=== PATIENT | female | born 1935 | race Caucasian/White ===

== ENCOUNTER 2019-02-12 20:36 | Inpatient (IN) ==
[2019-02-12] MEDS ORDERED: NS 1,000 ML IV ONE (21:43)
[2019-02-12] MEDS ORDERED: MERREM 1 GM in NS 50 ML IV ONE (21:44)
[2019-02-12 23:04] LABS: BASO# 0.04 X1000 (0.0-0.2); BASO% 0.2 % (0.0-0.8); HEMATOCRIT 40.7 % (37.0-47.0); HEMOGLOBIN 13.8 g/dL (12.0-16.0); IMM GRAN# 0.06 X1000 (0.0-0.04); IMM GRAN% 0.3 % (0.0-0.5); LYMPH# 0.63 X1000 (1.2-3.4); LYMPH% 3.6 % (20.5-51.1); MCH 30.1 PG (27-31); MCHC 33.9 g/dL (33-37); MCV 88.7 FL (81-99); MONO# 1.17 X1000 (0.11-0.59); MONO% 6.8 % (1.7-9.3); MPV 10.5 FL (7.4-10.4); NEUT# 15.39 X1000 (1.4-6.5); NEUT% 89.1 % (42.2-75.2); PLT 346 X1000 (130-400); RBC 4.59 XMIL (4.2-5.4); RDW 12.3 % (11.5-14.5); WBC 17.29 X1000 (4.8-10.8)
[2019-02-12 23:20] LABS: ALB/GLOB RATIO 1.1; ALBUMIN 3.9 g/dL (3.5-5.0); CALCIUM 10.5 mg/dL (8.8-10.2); POTASSIUM 3.5 mmol/L (3.5-5.1); TOTAL BILIRUBIN 0.34 mg/dL (0.20-1.00); TOTAL PROTEIN 7.3 g/dL (6.3-8.3)
[2019-02-12 23:26] LABS: INR 1.09; PROTIME 14.2 Seconds (11.0-16.0); PTT 27.9 Seconds (22.3-41.8)
[2019-02-13] MEDS ORDERED: NS 500 ML IV ONE (00:17)
--- NOTE | 2019-02-13 00:57 | PROVIDER DOCUMENTATION ---
This chart was entered by Lori Box Scribe, acting as scribe for Carlos Andrews MD. HPI-General Adult - General Chief Complaint: SEPSIS ALERT - D Stated Complaint: weakness Time Seen by Provider: 02/12/19 21:07 Source: patient, family Allergies/Adverse Reactions: Patient Allergies Allergy/AdvReac Type Severity Reaction Status Date / Time codeine [Codeine] Allergy NAUSEA Verified 04/21/17 18:58 Home Medications: Home Medication List Medication Instructions Recorded Confirmed Last Taken Type Memantine HCl 5 mg PO BID 04/21/17 02/12/19 Unknown History Diltiazem [Cardizem] 30 mg PO TID #90 tab 04/22/17 02/12/19 Unknown Rx Losartan [Cozaar] 100 mg PO DAILY tablet 04/22/17 02/12/19 Unknown Rx PRAVAstatin [Pravachol] 20 mg PO QHS tablet 04/22/17 02/12/19 Unknown Rx Aspirin 81 mg PO DAILY 02/12/19 02/12/19 Unknown History Clonidine [Catapres] 0.1 mg PO Q6H PRN PRN 02/12/19 02/12/19 Unknown History - History of Present Illness -Gen Adult Nature of Presenting Problems: pt is a 83 yr old female presenting via EMS for AMS, weakness. pt family reported pt having nausea, vomiting, fever and difficulty ambulating, reports pt is able to ambulate but seems much slower than usual. pt also has had several episodes of incontinence and syncope today. pt hx of dementia. Location of Pain/Injury: reports: none Pain Radiation: reports: no radiation Quality of Pain: reports: none Severity: reports: moderate Onset/Duration: reports: gradual Timing: reports: still present, getting worse Context/Activities at Onset: reports: light activity Modifying Factors: improves with: nothing Associated Symptoms: reports: fever/chills, genitourinary problems, nausea, syncope, vomiting, weakness, trouble walking. denies: chest pain, diarrhea, shortness of breath Recently seen or treated by another doctor?: No Review of Systems - Adult - REVIEW OF SYSTEMS - ADULT Constitutional: reports: chills, fever, fatique Eyes: reports: no symptoms reported Ears, Nose, Mouth & Throat: reports: no symptoms reported Cardiovascular: denies: chest pain, palpitations, syncope Respiratory: denies: shortness of breath Gastrointestinal: reports: nausea, vomiting. denies: abdominal pain Genitourinary: reports: frequent UTI's, incontinence Musculoskeletal: reports: muscle weakness Integumentary: reports: no symptoms reported Neurological: reports: no symptoms reported, loss of balance. denies: dizziness/vertigo, headache/migraines, syncope Psychiatric: reports: no symptoms reported Endocrine: reports: no symptoms reported Hematologic/Lymphatic: reports: no symptoms reported Allergic/Immunologic: reports: no symptoms reported All Other Systems: Reviewed and Negative Past History - Adult - PAST MEDICAL HISTORY-ADULT Review of Records: reports: Old Records Reviewed, Nursing Assessment Review, Medications Reviewed, Social history reviewed & non-contributory. Major Childhood Illnesses: reports: denies history Cardiovascular: reports: HTN, hyperlipidemia Respiratory: reports: denies history Gastrointestinal: reports: GERD Obstetrical/Gynecological: reports: denies history Genitourinary: reports: denies history Musculoskeletal: reports: denies history Neurological: reports: CVA, dementia Endocrine/Immune: reports: denies history Other Conditions: reports: denies history - PRIOR SURGERIES/PROCEDURES Surgical/Procedure History: reports: appendectomy, tonsillectomy - IMMUNIZATION STATUS Childhood Immunizations: See Nurse Assessment Flu Vaccine: See Nurse Assessment - FAMILY HISTORY Family History: reviewed, not pertinent - SOCIAL HISTORY Smoking: non-smoker Substance Use: denies Living Situation: family Physical Exam-General - PHYSICAL EXAM-ADULT Initial Vital Signs Reviewed: Yes - CONSTITUTIONAL General Appearance: alert, no apparent distress - EYES Eyes: PERRL/EOMI - HEAD, EARS, NOSE, MOUTH & THROAT HENMT: normocephalic/atraumatic, moist mucous membranes - NECK Neck: non-tender, full range of motion, supple, normal inspection - RESPIRATORY Respiratory: chest non-tender, lungs clear, normal breath sounds, no respiratory distress, no accessory muscle use - CARDIOVASCULAR Cardiovascular: normal peripheral pulses, no edema, tachycardia - GASTROINTESTINAL (ABDOMEN) Abdominal Exam: normal bowel sounds, non tender, soft - LYMPHATIC Lymphatic: no adenopathy - MUSCULOSKELETAL Back Exam: normal inspection, no CVA tenderness, no vertebral tenderness Extremity: normal range of motion, non-tender, normal inspection Peripheral Pulses: radial (R): 2+, radial (L): 2+ - SKIN Integumentary: normal color, normal turgor, warm/dry - NEUROLOGIC 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, grossly normal, no motor/sensory deficits - PSYCHIATRIC Psych/Mental Status: oriented x 3 Progress - PLAN OF CARE/RESULTS Progress/Plan/Lab Results: Vital Signs - 8 hr 02/12/19 21:00 Temperature 101.6 F H Pulse Rate 106 H Respiratory Rate 20 Blood Pressure 175/100 O2 Sat by Pulse Oximetry 91 L Orders Category Date Time Status CHEST-PORTABLE [RAD] Stat Exams 02/12/19 21:[address] HEAD W/O CONTRAST [CT] Stat Exams 02/12/19 21:42 Ordered BLOOD CULTURE [BLDCUL] Stat Lab 02/12/19 21:22 Ordered CBC WITH ELECTRONIC DIFF [HEME] Stat Lab 02/12/19 21:40 Uncollected COMPREHENSIVE METABOLIC PANEL [CHEM] Stat Lab 02/12/19 21:40 Uncollected LACTATE, PLASMA [CHEM] Stat Lab 02/12/19 21:40 Uncollected PROTIME WITH INR [COAG] Stat Lab 02/12/19 21:40 Uncollected PTT [COAG] Stat Lab 02/12/19 21:40 Uncollected URINALYSIS W/POSS RFLX CULT [URINALYSIS] Stat Lab 02/12/19 21:40 Uncollected 0.9% Sodium Chloride Inj [Ns] 1,000 ml Med 02/12/19 21:43 Active IV 999 mls/hr Meropenem [Merrem] 1 gm Med 02/12/19 21:44 Active 0.9% Sodium Chloride Inj [Ns] 50 ml IV NOW Proceed to admit with Dr. Bruce hospitalist for severe sepsis due to UTI. She has baseline dementia and is alert and oriented x 3 currently. Given 30 mL/kg NS bolus and Merrem due to daughter stating she is allergic to PCN and sulfa drugs. Her lactic acid was elevated along with leukocytosis and fever and sinus tachycardia. CXR negative for pneumonia. CT head negative. Daughter at bedside aware of plan of care and in agreement. Result Diagrams: 02/12/19 21:24 02/12/19 21:24 - XRAY 1 XRAY Study: Chest Impression: Normal - CT/MRI 1 CT Study: Head Impression: Normal, See EMR Report Departure - Departure Date of Disposition Decision: 02/13/19 Time of Disposition Decision: 00:55 DIAGNOSIS: Severe sepsis, Urinary tract infection, Lactic acidosis, Leukocytosis, Alzheimer's dementia without behavioral disturbance Disposition: ADMITTED INPATIENT 09 Certified Medical Emergency: Emergent Condition: Fair Referrals and Follow-Ups: Yashira Mejia MD [Primary Care Provider] - - Critical Care Note This patient required my direct & personal management of CC.: Yes Total Time (mins): 35 Critical Care Statement: This patient required my direct personal management to treat or rule out processes, the absence of which, could potentiallly result in sudden, clinically significant life or limb threatening deterioration. Attestation - Physician/ CLEMENTE Attestation Patient care was provided by Advanced Practice Provider:: No The physician spent face to face time with patient:: Yes Advanced Practice Provider documentation review:: Supervising physician onsite and consulted in the evaluation and care of this patient. The physician did have a face to face encounter with the patient. This chart was documented by the indicated scribe, (Lori Box Scribe) and accurately reflects the services I performed and decisions made by me, Carlos Andrews MD, as attested by the provider's signature.
[2019-02-13 01:03] LABS: URINE SOURCE CATH
[2019-02-13 01:05] LABS: BILIRUBIN URINE NEGATIVE (NEGATIVE); BLOOD URINE MODERATE (NEGATIVE); COLOR YELLOW; GLUCOSE URINE NEGATIVE (NEGATIVE); KETONE URINE TRACE mg/dL (NEGATIVE); LEUKOCYTES URINE SMALL (NEGATIVE); NITRITE URINE POSITIVE (NEGATIVE); PROTEIN URINE TRACE mg/dL (NEGATIVE); SP GRAVITY URINE 1.014; TURBIDITY URINE HAZY (CLEAR); UROBILINOGEN URINE NORMAL (NORMAL)
[2019-02-13 01:07] LABS: UR EPITHELIAL CELLS <10 /HPF (<10); URINE BACTERIA 4+ /HPF; URINE RBC <10 /HPF (<10)
[2019-02-13] MEDS ORDERED: ZOFRAN IV PRN (02:21)
[2019-02-13] MEDS ORDERED: INVANZ 1 GM/NS 1 GM/50 ML IVPB IV SCH (02:21)
[2019-02-13] MEDS: NS 1,000 ML IV SCH ×3 (02:42→23:40)
--- NOTE | 2019-02-13 06:20 | Diag Imaging Result Doc PS360 ---
CT HEAD W/O CONTRAST - 02/12/2019 INDICATION: altered mental status COMPARISON: 10/11/2014 FINDINGS: There is been worsening in the extensive periventricular white matter chronic microvascular ischemia. Stable mild cerebral atrophy. No intracranial mass or hemorrhage. The skull is intact. The sinuses, mastoids, and middle ears are clear. IMPRESSION: Slight overall worsening in the chronic microvascular ischemia. No acute process. This exam was performed using automated exposure control, adjustment of mA or kV according to patient size, and/or use of iterative reconstruction technique Electronically signed by Yahir Lowery 02/13/2019 6:17 AM
--- NOTE | 2019-02-13 07:02 | Diag Imaging Result Doc PS360 ---
EXAM: CHEST-PORTABLE 02/12/2019 HISTORY: fever TECHNIQUE: AP portable supine at 2146 COMMENT: There is no evidence of acute cardiac or pulmonary disease. Compared to 02/04/2018 there has been no appreciable change. IMPRESSION: Stable chest. Electronically signed by Ricky Cornell 02/13/2019 6:59 AM
--- NOTE | 2019-02-13 08:17 | HISTORY AND PHYSICAL ---
PRIMARY CARE PHYSICIAN: Dr. Don Mejia. CHIEF COMPLAINT: Altered mental status. HISTORY OF PRESENTING ILLNESS: An 83-year-old female with a history of hypertension, renal artery stenosis and Alzheimer's dementia who was brought to the emergency department due to patient being altered and confused. As per family members, she was getting more disoriented. She had urinated on her bed, and subsequently the patient was brought to the emergency department. In the ED, she was evaluated there. She was somewhat sedated and not much history could be obtained from patient. Most of the history is obtained from previous records and family member. As per family, her mental status is worse than her baseline. PAST MEDICAL HISTORY: Includes hypertension, renal artery stenosis, osteosarcoma and dementia. PAST SURGICAL HISTORY: Appendectomy. Tonsillectomy. Adenoidectomy. ALLERGIES: Adhesive tape. CURRENT MEDICATIONS: 1. Aspirin 325 mg p.o. daily. 2. Losartan 100 mg p.o. daily. 3. Magnesium 400 mg p.o. daily. 4. Namenda 5 mg p.o. b.i.d. 5. Pravastatin 20 mg p.o. at bedtime. SOCIAL HISTORY: No history of smoking, alcohol or illicit drug use. FAMILY HISTORY: No history of coronary disease. REVIEW OF SYSTEMS: Limited. PHYSICAL EXAMINATION: GENERAL: The patient is resting comfortably. She arouses more to tactile stimuli. VITAL SIGNS: Temperature 101.6 degrees, pulse 106, respirations 20, blood pressure 175/100. HEENT: Atraumatic, normocephalic. NECK: No masses. CHEST: Clear to auscultation. CARDIOVASCULAR: Regular rate and rhythm. ABDOMEN: Soft. Positive bowel sounds. EXTREMITIES: No edema. NEUROLOGIC: Patient is arousable to tactile stimuli. GENITOURINARY: No bladder distention. SKIN: Warm. LABORATORIES AND STUDIES: WBC 17.29, hemoglobin 13.8, hematocrit 40.7 and platelets 346,000. Sodium 128, potassium 3.5, chloride 84, CO2 is 26, BUN is 24, creatinine is 1.0, glucose is 135 and plasma lactate is 2.4. ASSESSMENT: An 83-year-old female with a history of hypertension, renal artery stenosis, and dementia brought to the emergency department due to altered mental status. She apparently was having fever, and was becoming confused. She was also having low blood pressure. She was evaluated in the emergency department, and due to presenting symptoms she will require admission for further management. 1. Altered mental status. 2. Probable sepsis. 3. Urinary tract infection. 4. Hyponatremia. 5. Initially was hypotensive, and now normotensive. PLAN: 1. We will admit patient to medical floor with telemetry. 2. Continue with neuro checks. 3. We will check blood cultures, urine cultures, and start patient on IV antibiotics. 4. We will continue with IV fluid hydration. 5. We will hold antihypertensive agents for now. Monitor her blood pressure closely. 6. Put patient on DVT prophylaxis with SCD's. 7. We will continue to follow and reassess. Make further recommendation based on the patient's clinical course. cc: MD Sophie Sevilla MD MTDD
[2019-02-13] MEDS: ASPIRIN PO SCH (10:51)
[2019-02-13] MEDS: NAMENDA PO SCH ×2 (10:51→21:02)
[2019-02-13] MEDS ORDERED: TOBRAMYCIN 80 MG in NS 50 ML IV ONE (13:21)
[2019-02-13] MEDS: LEVAQUIN 500 MG/D5W 500 MG/100 ML IVPB IV SCH (14:52)
[2019-02-13] MEDS ORDERED: LANOXIN IV ONE (19:05)
[2019-02-13] MEDS: PRAVACHOL PO SCH (21:03)
--- NOTE | 2019-02-13 22:16 | PROGRESS NOTE ---
DATE: 02/13/2019 SUBJECTIVE: Ms. Islas has a longstanding history of Alzheimer's dementia. Her family brought her to the ER because of worsening confusion and disorientation. She had been urinating more frequently and had multiple episodes of bedwetting. She had no reported fever or chills. CT scan demonstrated chronic white matter changes. No acute stroke was noted. Her urinalysis was wildly positive. When I saw her this morning, she would arouse to verbal stimuli, but she was still confused and disoriented. She does have a history of paroxysmal atrial fibrillation. She goes in and out of atrial fibrillation. Heart rate has been ranging from 87 to 105 throughout the day. She denies any chest pain, palpitations, or anginal equivalents. OBJECTIVE: Vital Signs: Temperature 101.2 (current temperature 97.9), pulse 111, respiratory rate 19, BP 156/100. Cardiovascular: Irregularly irregular. Lungs: Clear. Abdomen: Soft, nontender, with active bowel sounds. ASSESSMENT AND PLAN: 1. Metabolic encephalopathy secondary to urinary tract infection with sepsis. She does have baseline confusion and disorientation due to her underlying Alzheimer's dementia. We will continue fluid resuscitation, and I will change her antibiotics to Levaquin and tobramycin pending blood and urine cultures. 2. Paroxysmal atrial fibrillation. Her heart rate is a little bit too high. I will bolus her with intravenous digoxin, as we are holding the diltiazem. 3. End-of-life issues. I have had a long discussion with her daughter, Coty Mancilla, who holds her mother's [id number]. Ms. Mancilla told me that in the setting of a cardiopulmonary arrest, her mother would want no heroic measures undertaken. A NO CODE BLUE level 1 has been established. cc: Sophie Mejia MD
[2019-02-14 07:46] LABS: BASO# 0.06 X1000 (0.0-0.2); BASO% 0.6 % (0.0-0.8); EOS# 0.01 X1000 (0.0-0.7); EOS% 0.1 % (0.0-10.0); HEMATOCRIT 38.4 % (37.0-47.0); IMM GRAN# 0.03 X1000 (0.0-0.04); IMM GRAN% 0.3 % (0.0-0.5); LYMPH# 1.07 X1000 (1.2-3.4); LYMPH% 10.5 % (20.5-51.1); MCH 30.3 PG (27-31); MCHC 33.9 g/dL (33-37); MCV 89.5 FL (81-99); MONO# 1.33 X1000 (0.11-0.59); MPV 9.8 FL (7.4-10.4); NEUT# 7.72 X1000 (1.4-6.5); NEUT% 75.5 % (42.2-75.2); PLT 274 X1000 (130-400); RBC 4.29 XMIL (4.2-5.4); RDW 12.2 % (11.5-14.5); WBC 10.22 X1000 (4.8-10.8)
[2019-02-14] MEDS ORDERED: TOBRAMYCIN 80 MG in NS 50 ML IV ONE (08:08)
[2019-02-14 08:14] LABS: AGAP 15; BUN 20 mg/dL (8-22); CALCIUM 8.6 mg/dL (8.8-10.2); CHLORIDE 99 mmol/L (98-107); COSMO 277; CREATININE 0.6 mg/dL (0.5-0.9); ESTIMATED GFR > 60; GLUCOSE 81 mg/dL (70-104); POTASSIUM 2.7 mmol/L (3.5-5.1); SODIUM 138 mmol/L (136-145); TCO2 24 mmol/L (25-35)
[2019-02-14] MEDS: NAMENDA PO SCH ×2 (10:41→20:40)
[2019-02-14] MEDS: CARDIZEM PO SCH ×3 (10:41→18:06)
[2019-02-14] MEDS: COZAAR PO SCH (10:42)
[2019-02-14] MEDS: ASPIRIN PO SCH (10:42)
--- NOTE | 2019-02-14 11:00 | PROGRESS NOTE ---
DATE: 02/14/2019 SUBJECTIVE: Mrs. Islas was admitted to [facility] with a metabolic encephalopathy secondary to UTI with sepsis. Urine cultures are growing out 2 different gram-negative megan species. She is easily arousable. She is oriented to name and place. She answers questions appropriately. She has a history of paroxysmal atrial fibrillation. She continues to go in and out of atrial fibrillation. Heart rate was trending upward, and I bolused her with digoxin yesterday. As she is more awake and with it, I am going to resume her diltiazem today. OBJECTIVE: Vital Signs: Temperature 98.2 degrees, pulse 86, respirations 18, BP 148/87. CV: Irregularly irregular. Lungs: Clear. Abdomen: Soft, nontender, with active bowel sounds. LABORATORY DATA: Various laboratory studies were obtained. CBC demonstrated a white count of 10.2, hemoglobin 13, hematocrit 38.4, and a platelet count of 274,000. Electrolytes demonstrate the following: Sodium 138, potassium 2.7, chloride 99, CO2 of 24, BUN 20, creatinine 0.6, and glucose 81. ASSESSMENT AND PLAN: 1. Metabolic encephalopathy secondary to urinary tract infection with sepsis. We will continue intravenous Levaquin 500 mg daily, re-bolus with tobramycin 80 mg intravenously x1 dose pending urine and blood cultures. Hemodynamically, she is stable. Mentation has improved. We will increase her activity, and consult Physical Therapy. 2. Paroxysmal atrial fibrillation. She has converted back to atrial fibrillation. We will resume diltiazem for rate control. 3. Hypokalemia. I will give her potassium chloride 40 mEq intravenously over 4 hours, and recheck a BMP in the morning. cc: Sophie Mejia MD
[2019-02-14] MEDS: POTASSIUM CHLORIDE 20 MEQ/SWI 20 MEQ/100 ML IVPB IV SCH ×2 (15:39→18:47)
[2019-02-14] MEDS: LEVAQUIN 500 MG/D5W 500 MG/100 ML IVPB IV SCH (16:10)
[2019-02-14] MEDS: PRAVACHOL PO SCH (20:40)
[2019-02-15 08:43] LABS: AGAP 10; BUN 16 mg/dL (8-22); CALCIUM 8.7 mg/dL (8.8-10.2); CHLORIDE 94 mmol/L (98-107); COSMO 264; CREATININE 0.7 mg/dL (0.5-0.9); ESTIMATED GFR > 60; GLUCOSE 95 mg/dL (70-104); POTASSIUM 2.9 mmol/L (3.5-5.1); SODIUM 131 mmol/L (136-145); TCO2 27 mmol/L (25-35)
[2019-02-15] MEDS: ASPIRIN PO SCH (10:55)
[2019-02-15] MEDS: NAMENDA PO SCH ×2 (10:56→21:21)
[2019-02-15] MEDS: COZAAR PO SCH (10:56)
[2019-02-15] MEDS: CARDIZEM PO SCH ×3 (10:56→21:20)
[2019-02-15] MEDS ORDERED: KLOR-CON PO ONE (11:40)
[2019-02-15] MEDS: LEVAQUIN 500 MG/D5W 500 MG/100 ML IVPB IV SCH (14:55)
[2019-02-15] MEDS: PRAVACHOL PO SCH (21:21)
[2019-02-16 08:17] VITALS: BP 139/85
[2019-02-16 08:59] LABS: AGAP 9; BUN 18 mg/dL (8-22); CHLORIDE 95 mmol/L (98-107); COSMO 269; CREATININE 0.6 mg/dL (0.5-0.9); ESTIMATED GFR > 60; GLUCOSE 111 mg/dL (70-104); POTASSIUM 3.4 mmol/L (3.5-5.1); SODIUM 133 mmol/L (136-145); TCO2 29 mmol/L (25-35)
[2019-02-16] MEDS ORDERED: ELIQUIS PO SCH (09:00)
[2019-02-16] MEDS ORDERED: LEVAQUIN PO SCH (09:00)
--- NOTE | 2019-03-08 17:13 | DISCHARGE SUMMARY ---
ADMISSION DATE: 02/13/2019 DISCHARGE DATE: 02/16/2019 DISCHARGE DIAGNOSES: 1. Metabolic encephalopathy. 2. Urinary tract infection with sepsis. 3. Underlying Alzheimer's dementia. 4. Paroxysmal atrial fibrillation. 5. Essential hypertension. 6. Mixed hyperlipidemia. DISCHARGE INSTRUCTIONS: 1. The patient is to return to the clinic in 1 week to see me, Dr. Don Mejia, in anticipation of a transition of care visit. 2. Healthy heart diet. 3. Activity as tolerated. MEDICATIONS: Diltiazem 60 mg t.i.d., Eliquis 2.5 mg b.i.d., levofloxacin 500 mg daily for 10 days, amantadine 5 mg b.i.d., losartan 100 mg daily, pravastatin 20 mg every night at bedtime, aspirin 81 mg daily, clonidine 0.1 mg every 6 hours as needed for systolic blood pressures greater than 180 or diastolic blood pressures greater than 100. PHYSICAL EXAMINATION: General: This is an elderly, frail, 83-year-old lady in no apparent distress. Vital Signs: She is afebrile. Her vital signs are stable. Cardiovascular: Irregularly irregular. Lungs: Clear. Abdomen: Soft, nontender with active bowel sounds. HISTORY AND HOSPITAL COURSE: Ms. Vanessa Islas was admitted to [facility] with a metabolic encephalopathy secondary to a UTI with sepsis. She had a respiratory rate of 21. Her pulse was 111. Her CBC demonstrated a white count of 17,000 with a left shift. The patient was initially gently rehydrated with normal saline, and broad-spectrum antibiotics, including Levaquin and tobramycin, were initiated pending blood and urine cultures. Urine cultures grew out Escherichia coli. Blood cultures x2 demonstrated no growth after 5 days. With aggressive fluid resuscitation and broad-spectrum antibiotics, the urinary tract infection resolved. Her leukocytosis resolved. She returned to her baseline neurologically. She will take an additional 10 day course of oral Levaquin as an outpatient, and we will order a repeat urine culture after completion of antibiotics. She does have a history of paroxysmal atrial fibrillation. She converted into atrial fibrillation with elevated heart rate. Because of her increased risk for stroke, she was continued on Eliquis 2.5 mg b.i.d. We titrated upward on the oral Cardizem with stabilization of her heart rate. Having reached maximum hospital benefit, the patient was discharged in stable condition. cc: Sophie Mejia MD
== END 2019-02-16 11:11 | disposition home or self-care (01) | DRG 871 ==
LOC: ED 20:36 → 3N 02-13 02:54 → SUATTDRO 02-13 02:54
PROVIDERS: ADMIT Internal Medicine; ATTEND Internal Medicine

== ENCOUNTER 2019-06-07 16:13 | Observation (INO) ==
[2019-06-07] MEDS ORDERED: NS 1,000 ML IV ONE (16:36)
--- NOTE | 2019-06-07 16:50 | EKG Report ---
Test Performed on : 06/07/2019 4:40:28 PM Test Reason : CP Blood Pressure : / mmHG Vent. Rate : 103 BPM Atrial Rate : 110 BPM P-R Int : 000 ms QRS Dur : 096 ms QT Int : 362 ms P-R-T Axes : 000 -52 092 degrees QTc Int : 474 ms Atrial fibrillation. with rapid ventricular response. with premature ventricular or aberrantly conduc beatrice complexes. Left axis deviation Septal infarct (cited on or before 31-OCT-2015) Abnormal ECG When compared with ECG of 04-FEB-2018 20:59, Significant changes have occurred Unconfirmed Result
--- NOTE | 2019-06-07 17:40 | Diag Imaging Result Doc PS360 ---
CHEST-PORTABLE - 06/07/2019 INDICATION: syncope COMPARISON: 02/12/2019 FINDINGS: The lungs are normally expanded and clear. Heart size and mediastinal contours are normal. No pneumothorax or pleural effusion. IMPRESSION: Negative exam. Electronically signed by Yahir Lowery 06/07/2019 5:37 PM
[2019-06-07 18:10] LABS: BASO# 0.03 X1000 (0.0-0.2); BASO% 0.2 % (0.0-0.8); EOS# 0.04 X1000 (0.0-0.7); EOS% 0.3 % (0.0-10.0); HEMATOCRIT 35.4 % (37.0-47.0); HEMOGLOBIN 12.4 g/dL (12.0-16.0); IMM GRAN# 0.04 X1000 (0.0-0.04); IMM GRAN% 0.3 % (0.0-0.5); LYMPH# 0.44 X1000 (1.2-3.4); LYMPH% 3.2 % (20.5-51.1); MCH 29.9 PG (27-31); MCV 85.3 FL (81-99); MONO# 0.94 X1000 (0.11-0.59); MONO% 6.8 % (1.7-9.3); MPV 8.8 FL (7.4-10.4); NEUT# 12.37 X1000 (1.4-6.5); NEUT% 89.2 % (42.2-75.2); PLT 372 X1000 (130-400); RBC 4.15 XMIL (4.2-5.4); RDW 12.5 % (11.5-14.5); WBC 13.86 X1000 (4.8-10.8)
[2019-06-07 18:20] LABS: ESTIMATED GFR > 60
[2019-06-07 18:26] LABS: AGAP 13; BUN 14 mg/dL (8-22); CALCIUM 9.9 mg/dL (8.8-10.2); CHLORIDE 85 mmol/L (98-107); COSMO 261; CREATININE 0.8 mg/dL (0.5-0.9); GLUCOSE 131 mg/dL (70-104); POTASSIUM 3.1 mmol/L (3.5-5.1); SODIUM 129 mmol/L (136-145); TCO2 31 mmol/L (25-35)
--- NOTE | 2019-06-07 18:46 | PROVIDER DOCUMENTATION ---
This chart was entered by Aliya Rodríguez Scribe, acting as scribe for Cristopher De Anda MD. HPI-Syncope/Dizziness - General Stated Complaint: SYCOPE Time Seen by Provider: 06/07/19 16:18 Source: patient, family (son), EMS Allergies/Adverse Reactions: Patient Allergies Allergy/AdvReac Type Severity Reaction Status Date / Time Sulfa (Sulfonamide Allergy Unknown Unknown Verified 06/07/19 17:10 Antibiotics) codeine [Codeine] Allergy NAUSEA Verified 06/07/19 17:10 Penicillins Allergy Unknown Verified 06/07/19 17:10 Home Medications: Home Medication List Medication Instructions Recorded Confirmed Last Taken Type Memantine HCl 5 mg PO BID 04/21/17 06/07/19 Unknown History Losartan [Cozaar] 100 mg PO DAILY tablet 04/22/17 06/07/19 Unknown Rx PRAVAstatin [Pravachol] 20 mg PO QHS tablet 04/22/17 06/07/19 Unknown Rx Aspirin 81 mg PO DAILY 02/12/19 06/07/19 Unknown History Clonidine [Catapres] 0.1 mg PO Q6H PRN PRN 02/12/19 06/07/19 Unknown History Apixaban [Eliquis] 2.5 mg PO BID #60 tab 02/16/19 06/07/19 Unknown Rx Diltiazem [Cardizem] 60 mg PO TID@0800,1400,2100 #90 tab 02/16/19 06/07/19 Unknown Rx Levofloxacin [Levaquin] 500 mg PO DAILY #10 tab 02/16/19 06/07/19 Unknown Rx Hydrochlorothiazide 1 tab PO DAILY 06/07/19 06/07/19 Unknown History Megestrol Acetate 1 tab PO BID 06/07/19 06/07/19 Unknown History Potassium Chloride [Klor-Con M20] 1 tab PO DAILY 06/07/19 06/07/19 Unknown History - History of Present Illness-Syncope/Dizzy Nature of Presenting Problem: 84 yowf presents back to the ed via ems for a syncopal episode at home. pt sts was seen earlier today for a fall and had sutures placed on bridge of nose. pt had CT done with first visit. pt son sts she had went home and had not ate since breakfast this am and may have been the cause of the syncope. pt has no new injuries with syncopal episode and is resting in bed. Prior Episodes: reports: single episode today Onset/Duration: reports: just prior to arrival Timing: reports: gone now Position/Activity at time of episode: reports: sitting Symptoms prior to episode: reports: nausea/vomiting Context: reports: lost consciousness Loss of Consciousness: brief (seconds) Location of injury. (If syncope resulted in an injury.): reports: none Current Symptoms: reports: none/feels normal Recently Seen Here or By Another Healthcare Provider: Yes (seen earlier in day for lac to nose) Review of Systems - Adult - REVIEW OF SYSTEMS - ADULT Constitutional: reports: no symptoms reported Eyes: denies: blurred vision, double vision Ears, Nose, Mouth & Throat: reports: no symptoms reported Cardiovascular: denies: chest pain, palpitations Respiratory: denies: cough, shortness of breath, wheezing Gastrointestinal: reports: see HPI, nausea, vomiting Genitourinary: reports: no symptoms reported Musculoskeletal: denies: back pain, neck pain Integumentary: reports: no symptoms reported Neurological: denies: dizziness/vertigo, headache/migraines Psychiatric: reports: no symptoms reported Endocrine: reports: no symptoms reported Hematologic/Lymphatic: reports: no symptoms reported Allergic/Immunologic: reports: no symptoms reported All Other Systems: Reviewed and Negative Past History - Adult - PAST MEDICAL HISTORY-ADULT Review of Records: reports: Old Records Reviewed, Nursing Assessment Review, Medications Reviewed, Social history reviewed & non-contributory. Major Childhood Illnesses: reports: denies history Cardiovascular: reports: HTN, hyperlipidemia Respiratory: reports: denies history Gastrointestinal: reports: GERD Obstetrical/Gynecological: reports: denies history Genitourinary: reports: denies history Musculoskeletal: reports: denies history Neurological: reports: Alzheimer's, CVA, dementia Psychiatric: reports: denies history Endocrine/Immune: reports: denies history Other Conditions: reports: denies history Additional History: vertigo and wrist ca - PRIOR SURGERIES/PROCEDURES Surgical/Procedure History: reports: appendectomy, tonsillectomy - IMMUNIZATION STATUS Childhood Immunizations: See Nurse Assessment Flu Vaccine: See Nurse Assessment - FAMILY HISTORY Family History: reviewed, not pertinent - SOCIAL HISTORY Smoking: denies Substance Use: denies Living Situation: alone Physical Exam-General - PHYSICAL EXAM-ADULT Initial Vital Signs Reviewed: Yes - CONSTITUTIONAL General Appearance: appears well, alert, no apparent distress (pt is nontoxic in appearance and in no obvious distress.) - EYES Eyes: PERRL/EOMI, pink conjunctivae - HEAD, EARS, NOSE, MOUTH & THROAT HENMT: moist mucous membranes, other (ecchymosis and swelling noted to bridge of nose and face from laceration repair earlier today @ [facility]) - NECK Neck: full range of motion, supple, normal inspection - RESPIRATORY Respiratory: chest non-tender, lungs clear, normal breath sounds - CARDIOVASCULAR Cardiovascular: normal peripheral pulses, irregularly irregular - CHEST (BREASTS) Chest/Breast: deferred - GASTROINTESTINAL (ABDOMEN) Abdominal Exam: normal bowel sounds, non tender, soft - GENITOURINARY Female Genitalia/Pelvic Exam: deferred Rectal Exam: deferred Hemoccult Exam: deferred - MUSCULOSKELETAL Back Exam: no CVA tenderness, no vertebral tenderness Extremity: normal range of motion, non-tender, normal capillary refill, pelvis stable - SKIN Integumentary: normal turgor, warm/dry, ecchymosis (noted to nose and face) - NEUROLOGIC Neurologic: grossly normal - PSYCHIATRIC Psych/Mental Status: normal mood/affect, normal thought content, normal thought process, oriented x 3 Progress - PLAN OF CARE/RESULTS Progress/Plan/Lab Results: Vital Signs - 8 hr 06/07/19 17:03 Temperature 98.8 F Pulse Rate 95 H Respiratory Rate 13 Blood Pressure 128/87 O2 Sat by Pulse Oximetry 97 Laboratory Results - last 24 hr 06/07/19 06/07/19 06/07/19 16:51 17:50 17:50 WBC 13.86 H RBC 4.15 L Hgb 12.4 Hct 35.4 L MCV 85.3 MCH 29.9 MCHC 35.0 RDW Std Deviation 12.5 Plt Count 372 MPV 8.8 Immature Gran % (Auto) 0.3 Neut % (Auto) 89.2 H Lymph % (Auto) 3.2 L Maury % (Auto) 6.8 Eos % (Auto) 0.3 Baso % (Auto) 0.2 Immature Gran # (Auto) 0.04 Neut # (Auto) 12.37 H Lymph # (Auto) 0.44 L Maury # (Auto) 0.94 H Eos # (Auto) 0.04 Baso # (Auto) 0.03 Sodium 129 L Potassium 3.1 L Chloride 85 L Carbon Dioxide 31 Anion Gap 13 BUN 14 Creatinine 0.8 Estimated GFR/1.73 m2 > 60 BUN/Creatinine Ratio 18 Glucose 131 H POC Glucose 133 H Calculated Osmolality 261 Calcium 9.9 Orders Category Date Time Status CHEST-PORTABLE [RAD] Stat Exams 06/07/19 16:33 Completed BMP [BASIC METABOLIC PANEL] [CHEM] Stat Lab 06/07/19 17:50 Completed CBC WITH DIFF [HEME] Stat Lab 06/07/19 17:50 Completed 0.9% Sodium Chloride Inj [Ns] 1,000 ml Med 06/07/19 16:36 Active IV 75 mls/hr EKG [EKG] Stat Ther 06/07/19 16:33 Draft Transfer/Admit Order [TRANSFER] Routine Transfer 06/07/19 17:44 Ordered Result Diagrams: 06/07/19 17:50 06/07/19 17:50 - EKG 1 Time of EKG reading by physician:: 16:46 EKG Read and Signed by:: Cristopher De Anda EKG Interpretation (*Must complete 3 of following elements*): Abnormal Rate: 103 Rhythm: afib no rvr per dr de anda Solano: left (deviation) QRS: normal LA Interval: normal ST Wave: normal Comments: septal infarct, age undetermined - CONSULTS/PCP/HOSPITALIST Notification #1 *Consult/PCP/Hospitalist*: Suzette Mejia PMD Time Discussed: 16:45 Consult Disposition: Will see in ED, Admit Departure - Departure Date of Disposition Decision: 06/07/19 Time of Disposition Decision: 16:45 DIAGNOSIS: Syncope and collapse, Hypokalemia, Dementia, Nasal laceration, Nasal fracture Disposition: ADMITTED INPATIENT 09 Certified Medical Emergency: Emergent Condition: Good - Critical Care Note This patient required my direct & personal management of CC.: No Attestation - Physician/ CLEMENTE Attestation Patient care was provided by Advanced Practice Provider:: No The physician spent face to face time with patient:: Yes Advanced Practice Provider documentation review:: Supervising physician onsite and consulted in the evaluation and care of this patient. The physician did have a face to face encounter with the patient. This chart was documented by the indicated scribe, (Aliya Rodríguez Scribe) and accurately reflects the services I performed and decisions made by me, Cristopher De Anda MD, as attested by the provider's signature.
[2019-06-07] MEDS ORDERED: PHENERGAN IV PRN (19:02)
[2019-06-07] MEDS ORDERED: CATAPRES PO PRN (19:02)
[2019-06-07] MEDS ORDERED: SODIUM CHLORIDE 0.9% INJ PRN (19:02)
[2019-06-07] MEDS ORDERED: TYLENOL PO PRN (19:02)
[2019-06-07] MEDS ORDERED: PRAVACHOL PO SCH (21:00)
[2019-06-08] MEDS: CARDIZEM PO SCH ×2 (02:29→09:25)
[2019-06-08] MEDS: NAMENDA PO SCH ×2 (02:29→09:25)
[2019-06-08] MEDS: ELIQUIS PO SCH ×2 (02:29→09:24)
[2019-06-08] MEDS: MEGACE PO SCH ×2 (02:29→09:25)
[2019-06-08] MEDS ORDERED: KLOR-CON PO ONE (05:43)
--- NOTE | 2019-06-08 06:15 | PROGRESS NOTE ---
DATE: 06/08/2019 SUBJECTIVE: Mrs. Islas fell yesterday, and sustained a concussion with loss of consciousness. She is awake and easily arousable. She is oriented to name and place. She answers questions appropriately. She denies any refractory headaches, nausea, or vomiting. Blood pressure is stable. She denies any chest pain, palpitations, or anginal equivalents. OBJECTIVE: Temperature 100.4 degrees, pulse 89, respirations 12, and BP 151/76.CV: Regular rate and rhythm. Lungs: Clear. Abdomen: Soft and nontender with active bowel sounds. Neurologic: She is alert and oriented to name and place. She answers questions appropriately. Cranial nerves 2-12 intact grossly. She has normal tone and strength in the upper and lower extremities. LABORATORY DATA: Various laboratory studies were obtained. A CBC demonstrated white count 13.8, hemoglobin 12.4, hematocrit 35.4, and a platelet count of 372,000. Electrolytes demonstrate the following. Sodium 129, potassium 3.1, chloride 85, BUN 14, creatinine 0.8, and glucose 131. ASSESSMENT AND PLAN: 1. Mild concussion with loss of consciousness. Clinically, she is at her baseline neurologically. She does not have any refractory headaches or intractable nausea or vomiting. I will recheck CT scan of the brain without contrast this morning. 2. Hypokalemia. I will give her KCl 40 mEq by mouth x1 dose. 3. Hypertension. Blood pressure is stable. We will continue her current regimen of medications. 4. Leukocytosis. She has a history of recurrent urinary tract infections. I will check a UA with a urine culture and begin oral Levaquin. cc: Sophie Mejia MD
--- NOTE | 2019-06-08 07:31 | HISTORY AND PHYSICAL ---
CHIEF COMPLAINT: Concussion with loss of consciousness. HISTORY OF PRESENT ILLNESS: Ms. Vanessa Islas is an 84-year-old lady, who is well known to me. She has a history of multiple medical problems including essential hypertension, severe Alzheimer dementia, and mixed hyperlipidemia. She fell yesterday and struck her face on the ahmet. There was loss of consciousness. She has had some nausea and dry heaves, but denies any headache or significant mental status changes or worsening confusion. Her initial CT scan demonstrated no intracranial bleeding. She did sustain a minimally displaced fracture of the left nasal bone. She was evaluated in the ER and was discharged home. When she got home, she fell again and the family brought her back to the ER for further evaluation. When I saw her in the ER, she was alert and easily arousable. She was oriented to name and place. She had some nausea, but denied any headache or worsening confusion. The family reported that she had been urinating more frequently over the past several days. She has had a history of recurrent urinary tract infections. PAST MEDICAL HISTORY: Essential hypertension, mixed hyperlipidemia, severe Alzheimer dementia, history of osteosarcoma, paroxysmal atrial fibrillation. PAST SURGICAL HISTORY: Appendectomy, tonsillectomy with adenoidectomy, reconstruction of the right forearm due to osteosarcoma. ALLERGIES: Adhesive tape, codeine. FAMILY HISTORY: Her father had known heart disease and of an UT at age 58. Her mother had hypertension and heart disease. Her sister had diabetes. SOCIAL HISTORY: She has never smoked. She does not consume alcoholic beverages. 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 She is a . MEDICATIONS: Eliquis 2.5 mg b.i.d., clonidine 0.1 mg q. 6 hours p.r.n. systolic blood pressures greater than 180 or diastolic blood pressures greater than 100, diltiazem 60 mg t.i.d., hydrochlorothiazide 25 mg daily, losartan 100 mg daily, Megace 20 mg b.i.d., Namenda 5 mg b.i.d., KCl 20 mEq p.o. daily, pravastatin 20 mg at bedtime. REVIEW OF SYSTEMS: General: She denies any recent weight gain or weight loss. HEENT: She wears glasses. CV: No chest pain, palpitations, or anginal equivalents. Pulmonary: No shortness of breath, PND, orthopnea. GI: See HPI. Endocrine: No polyuria, no polydipsia. No cold or heat intolerance. Skin: No easy bruisability. : No leakage of urine with coughing or laughing. Neurologic: No migraines or seizures. PHYSICAL EXAMINATION: GENERAL: This is an elderly, frail, 84-year-old lady in no apparent distress. She is afebrile. VITAL SIGNS: Stable. HEENT: There is some bruising under the eyes bilaterally. There is an obvious nose deformity. Pupils equal, round, and reactive to light. Extraocular eye movements intact. NECK: Supple. No masses, JVD or bruits. CV: Regular rate and rhythm. LUNGS: Clear. ABDOMEN: Soft, nontender with active bowel sounds. No hepatosplenomegaly. No abdominal bruits. EXTREMITIES: Without edema. NEUROLOGIC: She is alert and easily arousable. She is alert and oriented to name and place. She answers questions appropriately. Cranial nerves 2-12 intact grossly. She has normal tone and strength in the upper and lower extremities bilaterally. ASSESSMENT AND PLAN: 1. Concussion with loss of consciousness. (date of injury 06/07/2019). I am going to admit the patient to [facility] as an outpatient with Observation Services. We will perform neuro checks every 4 hours for 24 hours. I will recheck a CT scan in the morning. 2. Hypertension. Blood pressure is stable. We will continue her current regimen of medications. 3. Paroxysmal atrial fibrillation. She remains in normal sinus rhythm. Heart rate is well controlled on diltiazem. We will continue Eliquis to reduce the risk of stroke. 4. Leukocytosis. I suspect she may have a urinary tract infection. I will begin Levaquin 500 mg daily pending urine culture and urinalysis. Given the patient's comorbid condition and clinical presentation, I believe that it is reasonable to admit her to [facility] for observation overnight. At this point in time, I anticipate that she will be in the hospital for at least 1 midnight, and I will therefore place her in outpatient status. The use of her regular home dosage of Eliquis will also serve as deep vein thrombosis prophylaxis. cc: Sophie Mejia MD
--- NOTE | 2019-06-08 08:09 | Diag Imaging Result Doc PS360 ---
CT HEAD W/O CONTRAST - 06/08/2019 INDICATION: concussion COMPARISON: 06/07/2019 FINDINGS: Stable mild cerebral atrophy. Stable advanced cerebral white matter chronic microvascular ischemia. No intracranial mass or hemorrhage. The skull is intact. The sinuses, mastoids, and middle ears are clear. IMPRESSION: No acute disease or change from prior. This exam was performed using automated exposure control, adjustment of mA or kV according to patient size, and/or use of iterative reconstruction technique Electronically signed by Yahir Lowery 06/08/2019 8:06 AM
[2019-06-08] MEDS ORDERED: KLOR-CON PO SCH (09:00)
[2019-06-08] MEDS ORDERED: LEVAQUIN PO SCH (09:00)
[2019-06-08] MEDS ORDERED: COZAAR PO SCH (09:00)
[2019-06-08] MEDS ORDERED: HYDROCHLOROTHIAZIDE PO SCH (09:00)
[2019-06-08 12:07] VITALS: BP 105/57
[2019-06-08 14:32] LABS: URINE SOURCE CLEAN CATCH
[2019-06-08 14:39] LABS: BILIRUBIN URINE NEGATIVE (NEGATIVE); BLOOD URINE MODERATE (NEGATIVE); COLOR ORANGE; GLUCOSE URINE NEGATIVE (NEGATIVE); KETONE URINE NEGATIVE (NEGATIVE); LEUKOCYTES URINE LARGE (NEGATIVE); NITRITE URINE NEGATIVE (NEGATIVE); PH URINE 6.5; PROTEIN URINE 30 mg/dL (NEGATIVE); SP GRAVITY URINE 1.014; TURBIDITY URINE TURBID (CLEAR); UROBILINOGEN URINE NORMAL (NORMAL)
[2019-06-08 14:46] LABS: UR EPITHELIAL CELLS <10 /HPF (<10); URINE CASTS NONE SEEN; URINE CRYSTALS NONE SEEN; URINE SMALL ROUND CELLS NONE SEEN; URINE WBC TNTC /HPF (<10); URINE YEAST NONE SEEN
[2019-06-08 15:18] LABS: URINE BACTERIA 1+ /HPF
--- NOTE | 2019-06-12 09:32 | DISCHARGE SUMMARY ---
ADMISSION DATE: 06/07/2019 DISCHARGE DATE: 06/08/2019 DISCHARGE DIAGNOSES: 1. Concussion with loss of consciousness. 2. Nasal laceration. 3. Nasal fracture. 4. Paroxysmal atrial fibrillation. 5. Severe Alzheimer's dementia. 6. Renovascular hypertension. 7. Mixed hyperlipidemia. DISCHARGE INSTRUCTIONS: 1. Return to clinic in 1 week to see me, Dr. Don Mejia. 2. Activity as tolerated. 3. Healthy heart diet. MEDICATIONS: Levaquin 500 mg daily for 7 days, Tylenol 650 mg q.6 hours p.r.n., memantine 5 mg b.i.d., losartan 100 mg daily, pravastatin 20 mg at bedtime, Catapres 0.1 mg every 6 hours as needed for systolic blood pressures greater than 180 or diastolic blood pressures greater than 100, Eliquis 2.5 mg b.i.d., hydrochlorothiazide 25 mg daily, KCl 20 mEq daily, diltiazem 180 mg daily, Megace 80 mg b.i.d. HOSPITAL COURSE: Mrs. Islas tripped and fell and landed on her face and head. She sustained a suspected concussion. She did not have any significant headaches, but had nausea, vomiting, and was more sedated than usual. Her initial CT scan demonstrated mild cerebral atrophy and advanced cerebral white matter chronic microvascular ischemia, no mass or hemorrhage was noted. She also sustained a facial laceration and a nasal fracture. The patient was admitted to [facility] as an outpatient with observation services. We performed neurologic checks every 4 hours for 24 hours. We gently rehydrated her with normal saline and treated her nausea and vomiting on a p.r.n. basis with Phenergan. Her nausea and vomiting resolved. She did not have any significant headaches. She was alert and easily arousable. She was back to her baseline neurologically. We repeated a CT scan of the brain on 06/08/2019 with no changes from admission. We felt that she had sustained a mild concussion. I instructed the family that if she were developing severe headaches, worsening confusion or intractable nausea and vomiting, that she should return to the ER immediately. She had a mild leukocytosis. Her initial urinalysis was abnormal. She was with complaint of dysuria and increased urinary frequency. We treated her with oral Levaquin and she will complete a 7 day course of oral Levaquin as an outpatient. Having reached maximum hospital benefit, the patient was discharged in stable condition. cc: Sophie Mejia MD
== END 2019-06-08 13:55 | disposition home or self-care (01) ==
LOC: SUPCPDRO → ED 16:13 → INTOOBSV 18:31 → EDIPHOLD 18:31 → 4N 20:08
PROVIDERS: ADMIT Internal Medicine; ATTEND Internal Medicine

== ENCOUNTER 2019-06-25 05:22 | Inpatient (IN) ==
[2019-06-25] MEDS ORDERED: LR 1,000 ML ONE (06:03)
[2019-06-25] MEDS ORDERED: KEFZOL 1 GM/D5W 1 GM/50 ML IVPB ONE (06:04)
[2019-06-25] MEDS ORDERED: SENSORCAINE 0.25%/EPI 1:200,000 ONE (06:27)
[2019-06-25] MEDS ORDERED: METHYLENE BLUE 0.5% ONE (06:27)
[2019-06-25] MEDS ORDERED: ROBINUL ONE (06:46)
[2019-06-25] MEDS ORDERED: XYLOCAINE-MPF 2% ONE (06:46)
[2019-06-25] MEDS ORDERED: DIPRIVAN 1% ONE (06:46)
[2019-06-25] MEDS ORDERED: KETAMINE ONE (07:05)
[2019-06-25] MEDS ORDERED: DECADRON ONE (07:05)
[2019-06-25] MEDS ORDERED: TORADOL ONE (07:05)
[2019-06-25] MEDS ORDERED: ZOFRAN ONE (07:05)
[2019-06-25] MEDS ORDERED: OFIRMEV 1000 MG/ISOTONIC SOLN 1,000 MG/100 ML BOTTLE ONE (07:07)
--- NOTE | 2019-06-25 09:01 | OPERATIVE NOTE ---
PROCEDURE DATE: 06/25/2019 PREOPERATIVE DIAGNOSIS: Locally advanced right breast cancer, upper outer quadrant. POSTOPERATIVE DIAGNOSIS: Locally advanced right breast cancer, upper outer quadrant. PRINCIPAL PROCEDURE: Right modified radical mastectomy. SURGEON: Odalys Rodríguez MD. SUPERINTENDENT CONSTRUCTION: Dr. Javier Roper. ANESTHESIA: General. ESTIMATED BLOOD LOSS: 50 mL. DRAINS: Two 10 flat Osiel-Vera drains, one in the right axilla and one under the skin flaps, right chest. INDICATIONS: Ms. Vanessa Islas is an 84-year-old, white, female patient of Dr. Don Mejia, who has the beginnings of dementia and is cared for by her daughter. Recently, during her bath, it was noted that she had a locally advanced right breast cancer. I evaluated her in our outpatient offices and clinically, this was clearly a right breast cancer. We did not do a preoperative biopsy at the request of the family. We decided on a mastectomy for local control. FINDINGS: She had a large tumor, upper outer quadrant of the right breast. She also had clinically positive right axillary lymph nodes. We decided to perform a right modified radical mastectomy for local control because of, not only her large right breast cancer but also obviously enlarged lymph nodes, right axilla. The tumor was not adhered to her pectoralis major muscle. It did involve multiple lymph nodes in the right axilla. DESCRIPTION OF PROCEDURE: The patient was brought to the operating room, placed supine, received general anesthesia, and was intubated. Her right chest, breast, and axilla were prepped and draped in a sterile field. She received Ancef prophylactically. I alber an elliptical mastectomy incision and it was oriented obliquely so that it would remove all skin overlying this tumor. My incision was made with a 10 blade scalpel and then I created my flaps. I created the superior flap to the clavicle, medial flap to the sternum, inferior flap to the inframammary fold. Then I removed the breast from medial to lateral. All dissection was used using the cautery. The breast was removed and then we palpated the right axilla. There were several obviously involved lymph nodes. We felt we should remove those also for local control. We identified the margins of the axilla, the axillary vein and artery superiorly, the latissimus dorsi laterally, and the chest wall medially. I used the LigaSure to perform this dissection. We identified the thoracodorsal nerve, not the long thoracic nerve, as I removed these enlarged lymph nodes that were matted in some areas. They were sent to the pathologist for permanent section. I placed two 10 flat Osiel-Vera drains. They were brought out through separate stab incisions, anterior axillary line, inframammary fold. One was placed in the right axilla and one was placed under our skin flaps, right chest. They were secured to the skin with two 2-0 nylon stitches. I closed the wound in layers. First layer was 3-0 popoff Vicryl stitches to close the subcutaneous tissue. The skin was closed with a running 4-0 Monocryl subcuticular stitch. Xeroform, followed by a dry dressing and Medipore tape were used as dressings. Plans are to admit her to the hospital and discussed with the family placement at discharge. We will get Dr. Don Mejia to see the patient also. cc: Odalys Rodríguez MD
[2019-06-25] MEDS ORDERED: ZOFRAN IV PRN (10:13)
[2019-06-25] MEDS: MOTRIN PO SCH ×2 (13:57→17:06)
[2019-06-25] MEDS: TYLENOL PO SCH ×2 (13:58→17:05)
[2019-06-25 16:08] LABS: URINE SOURCE CATH
[2019-06-25 16:16] LABS: BILIRUBIN URINE NEGATIVE (NEGATIVE); BLOOD URINE NEGATIVE (NEGATIVE); COLOR YELLOW; GLUCOSE URINE NEGATIVE (NEGATIVE); KETONE URINE NEGATIVE (NEGATIVE); LEUKOCYTES URINE NEGATIVE (NEGATIVE); NITRITE URINE NEGATIVE (NEGATIVE); PROTEIN URINE NEGATIVE (NEGATIVE); SP GRAVITY URINE 1.014; TURBIDITY URINE CLEAR (CLEAR); UROBILINOGEN URINE NORMAL (NORMAL)
[2019-06-25 16:18] LABS: UR EPITHELIAL CELLS <10 /HPF (<10); URINE BACTERIA NEGATIVE /HPF; URINE RBC <10 /HPF (<10); URINE WBC <10 /HPF (<10)
[2019-06-25] MEDS ORDERED: CATAPRES PO PRN (22:02)
[2019-06-25] MEDS ORDERED: PRAVACHOL PO SCH (22:15)
[2019-06-26] MEDS ORDERED: COZAAR PO SCH (09:00)
[2019-06-26] MEDS ORDERED: KLOR-CON PO SCH (09:00)
[2019-06-26] MEDS ORDERED: NAMENDA PO SCH (09:00)
[2019-06-26] MEDS ORDERED: PERIDEX MT SCH (09:00)
[2019-06-26] MEDS ORDERED: HYDROCHLOROTHIAZIDE PO SCH (09:00)
[2019-06-26] MEDS ORDERED: MEGACE PO SCH (09:00)
[2019-06-26] MEDS ORDERED: CARDIZEM CD PO SCH (09:00)
[2019-06-26] MEDS ORDERED: MAG-OX PO SCH (09:00)
[2019-06-26] MEDS: MOTRIN PO SCH ×2 (09:17→14:04)
[2019-06-26] MEDS: TYLENOL PO SCH ×2 (09:18→14:04)
[2019-06-26 15:59] VITALS: BP 119/56
--- NOTE | 2019-06-26 16:20 | DISCHARGE SUMMARY ---
ADMISSION DATE: 06/25/2019 DISCHARGE DATE: 06/26/2019 ADMITTING DIAGNOSIS: Right breast cancer. DISCHARGE DIAGNOSIS: Right breast cancer. PRINCIPAL PROCEDURE: Right modified radical mastectomy on 06/25/2019. DISCHARGE DISABILITY: Full. DISCHARGE DISPOSITION: She will return to our outpatient offices this coming Tuesday for a wound check. DISCHARGE MEDICATIONS: She is to return to her home medications. DISCHARGE DIET: A regular diet. HOSPITAL COURSE: Ms. Vanessa Islas is an 84-year-old, white female, a patient of Dr. Don Mejia, who is developing dementia. She had a locally advanced right breast cancer, upper outer quadrant of the right breast. We discussed treatment options in the office and felt we should do a mastectomy to prevent wound problems. She was admitted on the day of surgery and underwent a total mastectomy but during the mastectomy, as we were removing the breast from the chest wall, we noticed that she had positive axillary lymph nodes. For local control, we removed the right axillary lymph nodes and performed a right modified radical mastectomy. Two drains were left at the time of surgery, one in the right axilla and one under the skin flaps, right chest. They were secured to the skin with sutures. Then she went to the recovery room and then was hospitalized overnight on our [address] [place] [address] david. On postop day 1, she was sitting in the chair. She had acceptable drainage from the drains. No hematoma involving the mastectomy site. She is awake and tolerating her diet. She was anxious to go home and see her animals. She is being cared for by her daughter. We will discharge her home under the care of her daughter with followup in my outpatient offices this coming Tuesday. At discharge, her heart rate was 70 to 94, blood pressure 119/56, O2 saturation 99%, and she was afebrile. cc: MD Sophie Echevarria MD
== END 2019-06-26 17:44 | disposition home or self-care (01) | DRG 582 ==
LOC: OR 05:22 → 4N 05:22 → OBSVTOIN 09:04
PROVIDERS: ADMIT Surgery; ATTEND Surgery
PROC: GE.MAST (2019-06-25 06:51)